=== PATIENT | male | born 1950 | race Caucasian/White ===

== ENCOUNTER 2017-10-01 14:40 | Emergency (ER) | payer OTHER ==
[~2017-10-01] VITALS: Ht 175.3 cm; Wt 73.5 kg
--- NOTE | ~2017-10-01 | EKG ---
[place] [address] [facility] [place] [address] ELECTROCARDIOGRAM REPORT Name: PRADIPTOYINAN Room #: DEP [facility] [id number] Admission: 10/01/17 Attend Phys: Discharge: 10/01/17 Date of : 54 Report #: [id number] THIS REPORT FOR: //name// [facility] ED Test Date: 2017-10-01 Test Time: 14:46:17 Pat Name: TOYIN MOSELEY Department: Room: Gender: Biomedical Engineering Technician: RUST : 1950 Requested By: Jacinta Edmond Order Number: [id number] MD: Popeye West Measurements Intervals [place] Rate: 51 P: 33 [place]: 158 QRS: -24 QRSD: 91 T: 5 QT: 417 QTc: 385 Interpretive Statements Sinus bradycardia Inferior infarct, old Compared to ECG 03/26/2016 04:13:05 No significant change was found Electronically Signed On 10-02-2017 8:22:24 SUPERVISOR INSTRUMENT REPAIR by Popeye West [email or web address] <ELECTRONICALLY SIGNED> By: Popeye West MD, [facility] 10/02/17 0822 1446 1446 Popeye West MD, FACC /EPI
[~2017-10-01 14:40] MED LIST: ASPIRIN EC325 M1 PO; ASPIRIN EC81 M1; FLEXERIL PO; FLONASE 0.05%50 MCG NASAL; IBUPROFEN 200200 M1 PO; LOPRESSOR PO; NIASPAN ER 101000 M1 PO; NIASPAN750 MG; TOPROL XL25 MG PO; TYLENOL EX-STR500 M2 PO; ZOCOR 10 MG TAB10 MG; ZOCOR 20 MG TAB20 M1 PO
[2017-10-01 14:59] LABS: ABSOLUTE NEUTROPHILS 3.6 thou/uL (1.4-8.2); EOSINOPHILS 3.2 % (0.0-3.0); HEMATOCRIT 46.5 % (42.0-52.0); LYMPHOCYTES 31.2 % (24.0-44.0); MCHC 34.4 g/dL (28.0-37.0); MCV 92.8 fL (80.0-100.0); MONOCYTES 9.4 % (1.0-8.0); PLATELET COUNT 170 thou/uL (150-400); POLYS 55.2 % (36.0-66.0); RBC 5.01 mil/uL (4.50-6.00); RDW 13.8 % (10.5-14.5); WBC 6.5 thou/uL (4.0-11.0)
[2017-10-01 15:07] LABS: ANION GAP 4 mmol/L (7-16); BUN 15 mg/dL (7-18); CALCIUM 9.2 mg/dL (8.5-10.1); CHLORIDE 105 mmol/L (98-107); CO2 30 mmol/L (21-32); CREATININE 1.1 mg/dL (0.7-1.3); GLUCOSE 107 mg/dL (74-106); POTASSIUM 4.1 mmol/L (3.5-5.1); SODIUM 139 mmol/L (136-145)
[2017-10-01 15:16] LABS: TROPONIN-I < 0.04 ng/mL (<0.06)
== END 2017-10-01 16:02 | disposition home or self-care (01) ==
LOC: ER 14:40
PROVIDERS: Emergency Medicine
DX: R09.1 Pleurisy (principal); R07.89 Other chest pain; I25.2 Old myocardial infarction; E89.0 Postprocedural hypothyroidism; Z88.1 Allergy status to other antibiotic agents

== ENCOUNTER 2019-04-20 07:50 | Inpatient (IN) | payer OTHER ==
[~2019-04-20] VITALS: Ht 175.3 cm; Wt 74.3 kg
[2019-04-20 07:53] VITALS: BP 122/80
[2019-04-20] MEDS ORDERED: LOPERAMIDE 2 MG2 M1 PO (07:58)
[2019-04-20 08:15] LABS: ABSOLUTE NEUTROPHILS 3.2 thou/uL (1.4-8.2); BASOPHILS 0.8 % (0.0-2.0); EOSINOPHILS 3.6 % (0.0-3.0); HEMATOCRIT 48.8 % (42.0-52.0); HEMOGLOBIN 16.4 gm/dL (14.0-18.0); LYMPHOCYTES 35.5 % (24.0-44.0); MCH 31.9 pg (26.0-34.0); MCHC 33.5 g/dL (28.0-37.0); MCV 95.2 fL (80.0-100.0); MONOCYTES 8.6 % (1.0-8.0); PLATELET COUNT 189 thou/uL (150-400); POLYS 51.5 % (36.0-66.0); RBC 5.13 mil/uL (4.50-6.00); RDW 13.9 % (10.5-14.5); WBC 6.2 thou/uL (4.0-11.0)
[2019-04-20 08:21] LABS: ANION GAP 6 mmol/L (7-16); BUN 13 mg/dL (7-18); CALCIUM 9.4 mg/dL (8.5-10.1); CHLORIDE 105 mmol/L (98-107); CO2 30 mmol/L (21-32); CREATININE 1.4 mg/dL (0.7-1.3); GLUCOSE 135 mg/dL (74-106); POTASSIUM 4.2 mmol/L (3.5-5.1); SODIUM 141 mmol/L (136-145)
--- NOTE | 2019-04-20 08:25 | EKG ---
[place] [address] [facility] [place] [address] ELECTROCARDIOGRAM REPORT Name: TOYIN MOSELEY Room #: [facility] M.R.#: [id number] Admission: Attend Phys: Discharge: Date of : 54 Report #: [id number] THIS REPORT FOR: //name// [facility] ED Test Date: 2019-04-20 Test Time: 07:53:05 Pat Name: TOYIN MOSELEY Department: Room: Gender: M Media Professional: 12 : 1950 Requested By: Eliezer Lazar Order Number: [id number] MD: Popeye West Measurements Intervals [place] Rate: 53 P: 9 [place]: 150 QRS: -3 QRSD: 83 T: 9 QT: 429 QTc: 403 Interpretive Statements Sinus bradycardia Cannot rule out inferior infarct, old Baseline wander in lead(s) V1,V4,V5 Compared to ECG 10/01/2017 14:46:17 No significant change was found Electronically Signed On 04-20-2019 8:25:31 CDT by Popeye West [email or web address] <ELECTRONICALLY SIGNED> By: Popeye West MD, [facility] 04/20/19 0825 D: [id number] 075 Popeye West MD, FACC /EPI
[2019-04-20 08:29] LABS: TROPONIN-I <0.06 ng/mL (<0.06)
[2019-04-20 09:42] LABS: CHOLESTEROL 114 mg/dL (<200); HDL CHOLESTEROL 36 mg/dL (>40); LDL CHOLESTEROL 59 mg/dL (<100); TC:HDL 3.2 Ratio (Not establshd); TRIGLYCERIDE 99 mg/dL (<150); VLDL 20 mg/dL (<40)
--- NOTE | 2019-04-20 12:41 | CATHLAB ---
[facility] [address] [place] [address] INVASIVE PROCEDURE REPORT Name: TOYIN MOSELEY Room #: 150-4 ADM IN M.R.#: [id number] Admission: 04/20/19 Attend Phys: Emmanuel Briceno Discharge: Date of : 54 Date of Service: 04/20/19 1241 Report #: [id number] THIS REPORT FOR: //name// APPROVED REPORT Study performed: 04/20/2019 09:46:55 Patient Details Patient Status: ED Room #: The patient is a 68 year-old male Event Personnel Popeye West Carpet Installer, Neil Harris RN RN, Sanford Nuñez RTR Scrub, Julio C Villanueva RTR Scrub, Kerri Parish Monitor Procedures Performed Art Access - R femoral artery* Left Heart Cath w/LT VGram 3797490 LHCLV MELI Place w/wo Plasty Single OM 198254 MELI Place w/wo Plasty Single RCA 162372 FFR 5708719 FFR 76297 Initial Mod Sed Same Phys/QHP Gr5y 458781 93807 Mod Sed Same Phys/QHP Ea 854934 Hemostasis w/ Mynx Indication Chest pain Procedure Narrative The patient was brought urgently to the Cardiac Catheterization Laboratory and was prepped and draped in a sterile manner. The Right Groin^ was infiltrated with 1% Lidocaine subcutaneous anesthesia. A PINNACLE 6FR Sheath #[id number] sheath was inserted into the RFA^. Coronary angiography was performed using coronary diagnostic catheters. The right coronary system was accessed and visualized with a JR4 catheter. The left coronary system was accessed and visualized with a JL4 catheter. The left ventricle was accessed and visualized with a ANGLE PIG catheter. Left ventriculogram was performed in 30 degree projection. There was no hematoma. Intraoperative Conscious Sedation Sedation start time: 939 Case end Time: 1115 Fentanyl 100 mcg Versed 2 mg Fluoro Time: 13.40 minutes Dose: DAP 53271.00 cGycm2 2169 mGy [address] [place] [address] INVASIVE PROCEDURE REPORT Name: TOYIN MOSELEY Room #: 150-4 [facility] IN ..#: [id number] Admission: 04/20/19 Attend Phys: Emmanuel Briceno Discharge: Date of : 54 Date of Service: 04/20/19 1241 Report #: [id number] Contrast Type and Amount: Visipaque 335 ml Coronary Angiography The patient's coronary anatomy is right dominant. Diagnostic Cath Left Main Minimal distal left main plaque LAD The proximal to mid portions of the LAD were moderately calcified with scattered 30 to at most 40% stenoses. No flow limitation by FFR assessment. Diagonal 1 Small first diagonal branch with mild plaquing Circumflex Moderate size, nondominant circumflex. OM1 95% proximal first OM branch stenosis Right Coronary The right coronary was dominant with a 75% mid vessel stenosis. Mid right coronary was moderately calcified Distal right coronary stent was widely patent with mild intrastent plaquing. R PDA Large posterior descending branch, angiographically normal RPLV Small posterolateral branch, angiographically normal. Left Ventriculography The left ventricle is normal in size with normal contractility. The left ventricular ejection fraction is estimated to be 60-65%. Left ventricular wall motion abnormalities are not present. There is no mitral insufficiency. Hemodynamics The aortic pressure is 128/55 mmHg with a mean of 79 mmHg. The left ventricular pressure is 117/5 mmHg with a mean of mmHg. The left ventricular end diastolic pressure is 17 mmHg. PCI Technique Lesion Anticoagulation was achieved with Heparin, Integrilin. Patient was preloaded with Effient. Percutaneous coronary intervention was performed on the First obtuse marginal branch segment. The lesion stenosis prior to intervention was 95% with OMAIRA 3 flow. A LAUNCHER 6FR EBU 3.5 #[id number] Guide Catheter was used to engage the left main ostium. A Luge Wire .014 x 182CM #[id number] Interventional Guidewire was used to cross the lesion. BALLOON DILATION A Balloon catheter TREK RX 2.5 X 12 #[id number] was inserted and inflated up to 10.00atm for 30seconds. Repeat angiography revealed the [facility] [address] [place] [address] INVASIVE PROCEDURE REPORT Name: TOYIN MOSELEY Room #: 150-4 ADM IN M.R.#: [id number] Admission: 04/20/19 Attend Phys: Emmanuel Briceno Discharge: Date of : 54 Date of Service: 04/20/19 1241 Report #: [id number] following post-dilatation results: moderate residual stenosis. STENT DEPLOYMENT A stent RESOLUTE QUEENIE RX 2.5 X 18 #[id number] was inserted and inflated up to 15.00atm for 33seconds. POST STENT DEPLOYMENT BALLOON DILATION A Balloon catheter TREK NC RX 2.5 X 15 #[id number] was inserted and inflated up to 16.00atm for 30seconds. Additional Inflation: 16.00atm for 30seconds. Mild stent fdc of the southern ute circumflex, not thought to be flow-limiting. Resolute stent extended from the first marginal branch back into the southern ute, proximal circumflex Final angiography reveals 0 % stenosis with OMAIRA 3 flow. PCI Technique Lesion 2 Percutaneous Coronary Intervention was performed on the mid right coronary artery. Percutaneous coronary intervention was performed on the mid right coronary artery. The lesion stenosis prior to intervention was 80% with OMAIRA 3 flow. A VISTA 6FR JR 4 #[id number] Guide Catheter was used to engage the right coronary ostium. Balloon Dilation A Balloon catheter TREK RX 2.5 X 12 #[id number] was inserted and inflated up to 14.00atm for 27seconds. Stent Deployment A stent RESOLUTE QUEENIE RX 4.0 X 15 #[id number] was inserted and inflated up to 14.00atm for 35seconds. Post Stent Deployment Balloon Dilation A Balloon catheter TREK NC RX 4.0 X 12 #[id number] was inserted and inflated up to 16.00atm for 40seconds. Additional Inflation: 18.00atm for 32seconds. Conclusion 1. Normal global and regional left ventricular systolic function. Ejection fraction 65%. 2. Minimal ostial left main plaquing. 3. Mild to moderate proximal LAD calcific plaquing (30-40%). FFR 0.97 4. Severe first OM branch stenosis successfully stented with a 2.5 x 18 mm Resolute stent 5. Severe mid RCA stenosis, successfully stented with a 4.0 x 15 mm Resolute stent [facility] [address] [place] [address] INVASIVE PROCEDURE REPORT Name: TOYIN MOSELEY Room #: 150-4 ADM IN M.R.#: [id number] Admission: 04/20/19 Attend Phys: Emmanuel Briceno Discharge: Date of : 54 Date of Service: 04/20/19 124 Report #: [id number] Recommendations Cardiac Rehabilitation Referral Aggressive Medical Therapy <ELECTRONICALLY SIGNED> By: Popeye West MD, FACC 04/20/19 124 40 40 Popeye West MD, FACC /INF
[2019-04-20] MEDS ORDERED: EFFIENT10 MG PO (16:27)
--- NOTE | 2019-04-20 19:13 | NUR ---
REPORT GIVEN TO RICHARD ON 2N. TRANSFER PT TO ROOM 203. PT VOIDING WELL AND UP AMBULATING WITHOUT INCIDENCE. DRESSING RT GROIN CLEAN DRY INTACT. STRONG RT PEDAL PULSE. VSS. NO PAIN OR COMPLAINTS. ATE DINNER. FAMILY WITH PT.
[2019-04-20 20:12] VITALS: BP 106/63
[2019-04-21 00:06] LABS: GLYCOHEMOGLOBIN (HGB A1C) 5.7 % (4.8-5.6)
[2019-04-21 00:23] VITALS: BP 110/58
--- NOTE | 2019-04-21 02:20 | NUR ---
RECEIVED REPORT FROM JACKELIN PARDO FROM [facility].PATIENT ARRIVED TO ROOM 203 AROUND SHIFT CHANGE.PATIENT A/O X 4 ACCOMPANIED BY HIS AND DAUGHTER.DENIES PAIN AND SOB.RIGHT GROIN SOFT,NO HEMATOMA NOR BLEEDING NOTED.PULSES GOOD.MONITOR SHOWS SINUS AIDE IN THE 40'S.METOPROLOL HELD FOR THIS SHIFT.PATIENT'S LOWEST HEART RATE NOTED IS IN THE 37'S.PT ASYMPTOMATIC.DENIES CHEST PAIN AND SOB.PLACED ON O2 2L NC.PT REFUSED IV FLUIDS.WILL MONITOR AND CONTINUE POC.
[2019-04-21 05:33] VITALS: BP 107/64
[2019-04-21 05:35] LABS: HEMATOCRIT 40.8 % (42.0-52.0); MCH 31.8 pg (26.0-34.0); MCHC 33.1 g/dL (28.0-37.0); MCV 96.1 fL (80.0-100.0); RBC 4.24 mil/uL (4.50-6.00); RDW 14.2 % (10.5-14.5); WBC 7.1 thou/uL (4.0-11.0)
[2019-04-21 05:48] LABS: ALBUMIN 3.2 g/dL (3.4-5.0); CALCIUM 8.3 mg/dL (8.5-10.1); CREATININE 1.2 mg/dL (0.7-1.3); POTASSIUM 3.8 mmol/L (3.5-5.1); TOTAL BILIRUBIN 0.6 mg/dL (<0.1-1.0); TOTAL PROTEIN 5.5 g/dL (6.4-8.2); TROPONIN-I 0.57 ng/mL (<0.06)
[2019-04-21 05:51] LABS: HEMOGLOBIN 13.5 gm/dL (14.0-18.0)
[2019-04-21 07:30] VITALS: BP 122/71
--- NOTE | 2019-04-21 07:48 | D ---
[facility] [place] [address] DISCHARGE SUMMARY Name: TOYIN MOSELEY Room #: 203-P ADM IN M.R.#: [id number] Admission: 04/20/19 Attend Phys: Emmanuel Bassett Discharge: Date of : 54 Report #: [id number] THIS REPORT FOR: //name// CC: Emmanuel Syed MD DISCHARGE DIAGNOSES: 1. Unstable angina. 2. Coronary artery disease with stenting of the first marginal branch with a 2.5 x 18 mm Resolute stent; severe mid right coronary artery disease with stenting with a 4.0 x 15 mm Resolute stent. 3. Dyslipidemia. 4. Mild, asymptomatic carotid stenoses. 5. Dyslipidemia. 6. Elevated blood sugar. 7. Mildly symptomatic, isolated PVCs. HISTORY OF PRESENT ILLNESS: For the complete details of the history of present illness, see dictated history and physical. Briefly, the patient is a 68-year-old gentleman who sustained a limited inferior myocardial infarction while hiking in [place] about 10 years ago. This was treated by stenting of the right coronary. He now presents with exertional breathlessness with diaphoresis and profound fatigue. He was unable to complete his morning run no other associated symptoms. He presented to the Emergency Department and was admitted for further evaluation. HOSPITAL COURSE: The patient's cardiac enzymes were normal. EKG demonstrated sinus bradycardia with occasional premature ventricular complexes. He reported that this exertional breathlessness and fatigue, was reminiscent to what he experienced before his infarct 10 years ago. Coronary angiography was undertaken. The full details can be seen under a separate heading and dictation. In summary, left ventricular systolic function was normal. Left main exhibited mild plaquing. The LAD exhibited moderate calcific disease, not flow limiting by FFR assessment. The first marginal branch exhibited a severe ostial stenosis. This was stented with a 2.5 x 18 mm Resolute medicated stent. Severe calcific disease was noted within the mid right coronary. This was stented with a 4.0 x 15 mm Resolute medicated stent. He was treated with aspirin, Effient, heparin and Integrilin in the periprocedural setting. Excellent groin hemostasis and ambulating at the time of discharge. Due to relative hypotension and ELVIS inhibitor was not started. He was maintained on his low dose metoprolol and statin. A fasting lipid profile demonstrated a total cholesterol of 114, HDL 36, LDL 59, triglycerides 99. Fasting blood sugar was elevated. Hemoglobin A1c was drawn, the results of which remain pending and will be followed up on an outpatient basis. Arrangements were made for outpatient cardiac rehabilitation. Admitting chest [address] [address] DISCHARGE SUMMARY Name: TOYIN MOSELEY Room #: 203-P [facility] IN M.R.#: [id number] Admission: 04/20/19 Attend Phys: Emmanuel Bassett Discharge: Date of : 54 Report #: [id number] x-ray was normal. Medicines were reconciled. DISCHARGE MEDICATIONS: Aspirin 325 mg daily, Effient 10 mg daily, Flonase as needed, metoprolol succinate 25 mg daily, simvastatin 20 mg daily. DISCHARGE ACTIVITY: As instructed post-stenting. DISCHARGE DIET: Low fat, low cholesterol, no added salt. Follow up with regards to elevated blood sugar with Dr. Hamlet Syed. Follow up with myself in 1 month. DISCHARGE CONDITION: Stable and improved. <ELECTRONICALLY SIGNED> By: Popeye West MD, [facility] 04/21/19 0748 1637 2308 Popeye West MD, [facility] /nt
[2019-04-21 08:38] VITALS: BP 122/71
--- NOTE | 2019-04-21 08:45 | EKG ---
[address] [place] [address] ELECTROCARDIOGRAM REPORT Name: ANGELICAMALINDATOYIN Room #: 203-P ADM IN M.R.#: [id number] Admission: 04/20/19 Attend Phys: Emmanuel Bassett Discharge: Date of : 54 Report #: [id number] THIS REPORT FOR: //name// [facility] Test Date: 2019-04-20 Test Time: 11:59:03 Pat Name: TOYIN MOESLEY Department: Room: 203 Gender: Political Science Professor: Gaviota MCKEON : 1950 Requested By: Popeye West Order Number: [id number] MD: Popeye West Measurements Intervals [place] Rate: 42 P: 39 [place]: 168 QRS: -12 QRSD: 89 T: 0 QT: 490 QTc: 410 Interpretive Statements Sinus bradycardia Inferior infarct, old Compared to ECG 04/20/2019 07:53:05 No significant changes Electronically Signed On 04-21-2019 8:44:53 CDT by Popeye West [email or web address] <ELECTRONICALLY SIGNED> By: Popeye West MD, [facility] 04/21/19 0844 1159 1159 Popeye West MD, FACC /EPI
--- NOTE | 2019-04-21 09:03 | EKG ---
[address] [employer] [place] [address] ELECTROCARDIOGRAM REPORT Name: ANGELICAMALINDATOYIN Room #: 203-P ADM IN M.R.#: [id number] Admission: 04/20/19 Attend Phys: Emmanuel Bassett Discharge: Date of : 54 Report #: [id number] THIS REPORT FOR: //name// [facility] Test Date: 2019-04-21 Test Time: 07:22:18 Pat Name: TOYIN MOSELEY Department: Room: 203 P Gender: M Termite Helper: JAYLEEN : 1950 Requested By: Popeye West Order Number: [id number] MD: Popeye West Measurements Intervals [place] Rate: 39 P: 48 [place]: 162 QRS: -14 QRSD: 88 T: 0 QT: 471 QTc: 380 Interpretive Statements Sinus bradycardia Inferior infarct, old Compared to ECG 04/20/2019 07:53:05 No significant changes Electronically Signed On 04-21-2019 9:03:12 CDT by Popeye West [email or web address] <ELECTRONICALLY SIGNED> By: Popeye West MD, [facility] 04/21/19902 0722 1 Popeye West MD, FACC /EPI
--- NOTE | 2019-04-21 10:53 | NUR ---
ASSUMMED PT CARE AT [facility] 0700. PT A&O X4. ASSESSMENT CHARTED. FALL PRECAUTIONS IN PLACE. PT STATED HE DID NOT HAVE PAIN, HE DID NOT HAVE CHEST PAIN, AND HE WAS NOT SOB. VITAL SIGNS ARE STABLE. PT RECIEVED DISCHARGE INSTRUCTIONS AND EDUCATION. PT STATED UNDERSTANDING AND DENIED HAVING FURTHER QUESTIONS. PT'S R GROIN C/D/I, NO HEMATOMA. PT'S R GROIN DRESSING REMOVED, IV DC, AND TELE DC. PT DISCHARGED OFF UNIT PROVIDED WITH HOSPITAL TRANSPORT. PT ACCOMPANIED WITH . DRIVING HOME. PT LEFT UNIT AT [facility] 1045.
== END 2019-04-21 10:58 | disposition home or self-care (01) | DRG 247 ==
LOC: ER 07:50 → 2N 08:55 → EROBS 08:55 → TBA 09:22 → EROBS 09:35 → 2N 19:48
PROVIDERS: Emergency Medicine; Internal Medicine; ADMIT Hospitalist
PROC: 027135Z Dilation of Coronary Artery, Two Arteries with Two Drug-eluting Intraluminal Devices, Percutaneous Approach (ICD-10-PCS; principal; 2019-04-20)
PROC: 4A023N7 Measurement of Cardiac Sampling and Pressure, Left Heart, Percutaneous Approach (ICD-10-PCS; principal; 2019-04-20)
PROC: B215YZZ Fluoroscopy of Left Heart using Other Contrast (ICD-10-PCS; principal; 2019-04-20)
PROC: B211YZZ Fluoroscopy of Multiple Coronary Arteries using Other Contrast (ICD-10-PCS; principal; 2019-04-20)
PROC: 4A033BC Measurement of Arterial Pressure, Coronary, Percutaneous Approach (ICD-10-PCS; principal; 2019-04-20)
DX: I25.110 Atherosclerotic heart disease of native coronary artery with unstable angina pectoris (principal); E89.0 Postprocedural hypothyroidism; E78.00 Pure hypercholesterolemia, unspecified; I65.29 Occlusion and stenosis of unspecified carotid artery; R73.03 Prediabetes; E78.5 Hyperlipidemia, unspecified; I49.3 Ventricular premature depolarization; I25.2 Old myocardial infarction; Z88.1 Allergy status to other antibiotic agents; Z79.82 Long term (current) use of aspirin; Z79.899 Other long term (current) drug therapy; Z82.49 Family history of ischemic heart disease and other diseases of the circulatory system
CPT/HCPCS: 10081; 10194

== ENCOUNTER → 2019-12-01 | Outpatient (CLI) | payer OTHER ==
[~2019-12-01] MED LIST changes: +EFFIENT10 MG PO; +LOPERAMIDE 2 MG2 M1 PO
== END ==
LOC: SJCVC 09:56
DX: I25.10 Atherosclerotic heart disease of native coronary artery without angina pectoris (principal); R00.1 Bradycardia, unspecified; E78.00 Pure hypercholesterolemia, unspecified; I65.23 Occlusion and stenosis of bilateral carotid arteries; Z95.5 Presence of coronary angioplasty implant and graft; Z79.899 Other long term (current) drug therapy

== ENCOUNTER → 2020-01-13 | Outpatient (CLI) | payer OTHER | LOC: SJCVCIMAG 10:16 | PROVIDERS: ATTEND Family Medicine | DX: I73.9 Peripheral vascular disease, unspecified (principal) ==

== ENCOUNTER → 2020-06-07 | Outpatient (CLI) | payer OTHER | LOC: SJCVCIMAG 08:06 | PROVIDERS: ATTEND Internal Medicine | DX: I25.10 Atherosclerotic heart disease of native coronary artery without angina pectoris (principal); E78.00 Pure hypercholesterolemia, unspecified; I65.23 Occlusion and stenosis of bilateral carotid arteries; E78.5 Hyperlipidemia, unspecified; Z98.61 Coronary angioplasty status ==

== ENCOUNTER → 2020-12-06 | Outpatient (CLI) | payer OTHER | LOC: SJCVC 10:12 | PROVIDERS: ATTEND Internal Medicine | DX: I25.10 Atherosclerotic heart disease of native coronary artery without angina pectoris (principal); I49.49 Other premature depolarization; E78.00 Pure hypercholesterolemia, unspecified; I65.23 Occlusion and stenosis of bilateral carotid arteries; I25.2 Old myocardial infarction; E78.5 Hyperlipidemia, unspecified; Z95.5 Presence of coronary angioplasty implant and graft; Z98.890 Other specified postprocedural states; Z88.8 Allergy status to other drugs, medicaments and biological substances; Z79.82 Long term (current) use of aspirin; Z79.899 Other long term (current) drug therapy; Z82.49 Family history of ischemic heart disease and other diseases of the circulatory system ==

== ENCOUNTER → 2021-06-10 | Outpatient (CLI) | payer OTHER | LOC: SJCVC 10:04 | PROVIDERS: ATTEND Internal Medicine | DX: R00.1 Bradycardia, unspecified (principal); I25.10 Atherosclerotic heart disease of native coronary artery without angina pectoris; E78.5 Hyperlipidemia, unspecified; I65.23 Occlusion and stenosis of bilateral carotid arteries; Z72.89 Other problems related to lifestyle; Z79.82 Long term (current) use of aspirin; Z79.899 Other long term (current) drug therapy; Z88.2 Allergy status to sulfonamides; Z88.1 Allergy status to other antibiotic agents; Z95.5 Presence of coronary angioplasty implant and graft ==